=== PATIENT | male | born 1960 | race Caucasian/White ===

== ENCOUNTER 2022-05-23 07:28 | Outpatient (CLI) | payer BC, SELFPAY ==
[2022-05-23 10:10] LABS: Albumin* 4.1 g/dL (3.3-5.0)
[2022-05-23 10:11] LABS: Chloride* 104 mmol/L (96-114); Potassium* 5.1 mmol/L (3.6-5.1); Sodium* 137 mmol/L (135-149)
[2022-05-23 10:13] LABS: Carbon Dioxide* 27 mmol/L (20-32); Cholesterol* 180 mg/dL (90-199); Estimated Glomerular Filt Rate 85 ml/min
[2022-05-23 10:14] LABS: Alanine Aminotransferase* 34 U/L (4-50); Alkaline Phosphatase* 94 U/L (40-150); Aspartate Amino Transferase* 33 U/L (12-35); Bilirubin Total* 0.8 mg/dL (0.1-1.5); Blood Urea Nitrogen* 19 mg/dL (7-30); Calcium* 9.2 mg/dL (8.4-10.6); Glucose* 118 mg/dL (60-115); Total Protein* 6.6 g/dL (6.0-8.3); Triglycerides* 122 mg/dL (40-149)
[2022-05-23 10:15] LABS: HDL Cholesterol* 58 mg/dL (>=40); LDL Cholesterol Calculated 98 mg/dL (<100)
[2022-05-23 10:42] LABS: PSA Screen* 2.92 ng/mL (0.10-4.00)
== END 2022-05-23 07:29 | disposition home or self-care (01) ==
PROVIDERS: PCP Family Medicine; Visit Provider Family Medicine
DX: E78.5 Hyperlipidemia, unspecified (principal); I10 Essential (primary) hypertension; Z12.5 Encounter for screening for malignant neoplasm of prostate
CPT/HCPCS: 80053; 80061; 84153

== ENCOUNTER 2023-05-23 08:15 | Outpatient (CLI) | payer BC, SELFPAY | END 2023-05-23 08:16 | disposition home or self-care (01) | LOC: NFLDREF 05-26 09:07 | PROVIDERS: PCP Family Medicine; Referring Provider Family Medicine; Visit Provider Family Medicine | DX: Z00.00 Encounter for general adult medical examination without abnormal findings (principal); E78.5 Hyperlipidemia, unspecified; I10 Essential (primary) hypertension; E66.9 Obesity, unspecified; Z12.5 Encounter for screening for malignant neoplasm of prostate | CPT/HCPCS: 80053; 80061; 84153 ==

== ENCOUNTER 2023-08-08 07:01 | Outpatient (CLI) | payer BC, SELFPAY ==
--- NOTE | 2023-08-08 07:15 | MR_ITS ---
[facility] [address] [facility] [address] Phone:?[phone] Fax:?[phone] Referring Physician Information: Woo Palu M.D. [address] [facility] [address] Phone:?[phone] Fax:?[phone] Patient:Tabitha Holley D.O.B:?1960 Sex:?Male Phone:?[phone] [facility] MRN:?[id number] Exam Date:?08/08/2023 EXAM: MRI OF THE RIGHT KNEE CLINICAL INFORMATION: The patient is a 62-year-old with right knee pain. Evaluate for lateral meniscal tear. PRIOR SURGERY: The patient has a history of prior right knee surgery. COMPARISON STUDIES: Comparison is made to the prior MRI examination dated 07/31/2002. TECHNICAL INFORMATION: Imaging was performed on a high-field, 1.5 Lilian MR scanner. Axial proton-density and fat-suppressed T2 imaging of the right knee was performed in addition to sagittal proton-density and fat-suppressed proton- density imaging. Coronal proton-density and coronal STIR imaging was also performed. FINDINGS: Articular/Extraarticular collections: Effusion: Moderate. Popliteal cyst: Small, seen on axial series 4 image 18. Loose bodies: No well-defined intra-articular loose bodies are present. Subcutaneous and extraarticular soft tissues: Nonspecific subcutaneous soft tissue edema and/or hemorrhage can be seen along the anterior, anteromedial, and anterolateral aspects of the right knee. Osseous structures: Cortical irregularity and subcortical edema can be seen along the articular surfaces of the medial femoral condyle and medial tibial plateau, in keeping with the meniscal tearing and chondral loss discussed below. Additional cortical irregularity, subcortical cystic change, and subcortical edema can be seen along the patellofemoral articular surfaces with spurring along the articular margins. The findings are in keeping with osteoarthritic changes and are consistent with the chondromalacia and chondral loss described below. No evidence for well- defined fracture, contusion, or stress injury about the right knee can be seen. Ligamentous structures: ACL: There is thickening of the ACL with indistinctness of its margins and increased intrasubstance signal intensity, in keeping with residual changes of a prior severe incomplete sprain. No definite transverse disruption of ACL fibers is noted. PCL: Intact and normal in appearance. MCL: Intact and normal in appearance. LCL: Intact and normal in appearance. Posterolateral corner: Intact and normal in appearance. Posteromedial corner: No posteromedial corner soft tissue injury. Semimembranosus and pes anserine tendons demonstrate no tendinopathy or associated bursitis. Extensor mechanism/Patellar retinacular structures: Patellar tendon: Intact, without tendinopathy. Quadriceps tendon: Intact, without tendinopathy. Retinacula: The medial and lateral retinacula are intact. The medial patellofemoral ligament is intact. Medial compartment: Medial meniscus: The medial meniscus is abnormal in appearance. There is evidence for prior partial medial meniscectomy. Attenuation and irregularity of the medial meniscus can be seen. Broad-based areas of recurrent or residual tearing involving the middle and posterior portions of the medial meniscal remnant can be seen on coronal series 7 image 7 and on sagittal series 5 image 21. No definite parameniscal cyst formation is seen. Medial femoral condyle: Full-thickness and near full-thickness chondral loss can be seen along the central and posterior articular surfaces of the medial femoral condyle. Underlying bony changes are seen. Medial tibial plateau: Full-thickness and near full-thickness chondral loss can be seen along the central and medial weightbearing surfaces of the medial tibial plateau. Underlying bony changes are noted. Lateral compartment: Lateral meniscus: No evidence for lateral meniscal tearing is present. No evidence for parameniscal cyst formation can be seen. Lateral femoral condyle: Broad-based changes of grade II to III chondromalacia can be seen along the weightbearing surfaces of the lateral femoral condyle. Lateral tibial plateau: Full-thickness and near full-thickness chondral loss can be seen along the central and posterior weightbearing surfaces of the lateral tibial plateau. Patellofemoral compartment: Patella: Full-thickness and near full-thickness chondral loss can be seen along the lateral patellar facet on axial series 4 image 9. Underlying bony changes are seen. Trochlea: Broad-based, full-thickness chondral loss can be seen along the central and lateral articular surfaces of the femoral trochlea. Underlying bony changes are seen. Neurovascular: No definite neurovascular abnormalities are seen. CONCLUSION: 1. Full-thickness and near full-thickness chondral loss involving the medial and patellofemoral joint compartments with additional chondromalacia and chondral loss involving the lateral compartment. Please see the descriptions above. 2. Evidence for prior partial medial meniscectomy can be seen. There is recurrent or residual tearing of the middle and posterior portions of the medial meniscal remnant. No definite lateral meniscal tearing is seen. 3. Severe incomplete ACL sprain. The ligamentous structures of the knee are otherwise intact. 4. Moderate knee joint effusion and small popliteal cyst. [facility] Electronically signed on 08/08/2023 12:29:00 PM by Andres Rendon M.D.
== END 2023-08-08 07:02 | disposition home or self-care (01) ==
LOC: MRI 07:01
PROVIDERS: PCP Family Medicine; Visit Provider Family Medicine
DX: M25.561 Pain in right knee (principal); M22.41 Chondromalacia patellae, right knee; S83.511A Sprain of anterior cruciate ligament of right knee, initial encounter; M25.461 Effusion, right knee
CPT/HCPCS: 73721

== ENCOUNTER 2024-06-28 08:18 | Outpatient (CLI) | payer BC, SELFPAY ==
--- OUTSIDE RECORDS SUMMARY | 2024-06-30 14:23 | XMS_ITS | Clinical Summary ---
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 90 capsule 1 09/15/2014 Active lisinopril-hydrochlo rothiazide (10-12.5 mg) tablet (PRINZIDE; ZESTORETIC)Indicatio ns:HTN (hypertension) Take 1 tablet by mouth once daily. 30 tablet 0 10/10/2015 Active Active Problems Problem Noted Date Diagnosed Date HTN (hypertension) 02/28/2012 Cervical radiculitis 09/05/2011 Degeneration of cervical intervertebral disc 09/2010 Impaired glucose tolerance 04/10/2011 Carpal tunnel syndrome 03/28/2011 Sensorineural hearing loss, bilateral 03/31/2007 Encounters Date Type Department Care Team Description 05/18/2024 1:30 PM CDT Office Visit [facility] [address] [place] [address] Hodan Rizzo AuD Hearing Aid (FAY fitting) 05/18/2024 Travel 05/18/2024 Telephone [facility] [address] [place] [address] Hodan Rizzo AuD 04/27/2024 3:30 PM CDT Office Visit [facility] [address] [place] [address] Hodan Rizzo AuD Hearing Problem (Hearing test) 04/27/2024 Travel 04/12/2024 Telephone [facility] [address] [place] [address] Hodan Rizzo AuD Returning call (Hearing test) 04/09/[address] [facility] [address] [phone] Hodan Rizzo AuD Prior Authorization 04/07/2024 12:00 PM CDT Office Visit [facility] [address] [facility] [address] Hodan Rizzo AuD Hearing Aid (FAY check) 04/07/2024 Travel from Last 3 Months Immunizations Name Administration Dates Next Due COVID-19 vaccine (IntelePeer 30mcg/0.3mL) PF, MDV 11/15/2020,10/24/2020 Influenza RIV4 (Age 18+ Year s) PRESERV FREE 08/01/2021 Influenza Virus, Unspecified 07/17/2011, 09/10/2007,08/16/2003,2000 Influenza, IIV3 (Age >=3 years) 08/24/2012 Influenza, IIV4 06/29/2019,07/04/2014 Td (Age >=7 Years) 01/31/2005 Tdap 05/04/2020,12/07/2010 Zoster (Shingrix-RZV, recombinant) 01/04/2022, Family History Medical History Relation Name Comments Other Father early Alzheimer 's Good Health Mother b 1936 Relation Name Status Comments Father Mother Social History Tobacco Use Types Packs/Day Years Used Date Smoking Tobacco: Never Smokeless Tobacco: Never Tobacco Cessation:Counseling Given: Yes Alcohol Use Standard Drinks/Week Comments Yes 0 (1 standard drink = 0.6 oz pur e alcohol) occasionally Sex and Gender Information Value Date Recorded Sex Assigned at Not on file Gender Identity Not on file Sexual Orientation Not on file Obstetrics History Last Filed Vital Signs Vital Sign Reading Time Taken Comments Blood Pressure 123/77 05/03/2015 2:02 PM CDT Pulse 51 05/03/2015 2:02 PM CDT Temperature 36.6 ??C (97.8 ??F) 05/03/2015 2:02 PM CD T Respiratory Rate - - Oxygen Saturation 97% 05/03/2015 2:02 PM CDT Inhaled Oxygen Concentration - - Weight 101.5 kg (223 lb 12.8 oz) 05/03/2015 2:02 PM CDT Height 173.5 cm (5' 8.31) 01/24/2014 7:32 AM CD T Body Mass Index 33.72 01/24/2014 7:32 AM CDT Plan of Treatment Health Maintenance Due Date Last Done Comments Depression screening for age 12+ 1970 HIV for age 15-65 1973 BMI (ht and wt on same day) for age 18+ 1976 Hepatitis C screening for ag e 18-79 1976 Lipids for age 45-75 09/17/2018 09/17/2013, 12/13/19 11 Pneumococcal series for age 65+ (1 of 1 - PCV) 11/28/2023 COVID-19 vaccine series ( season) 2024 11/14/2023, 09/10/2022, 08/30/2021, Additional history exists Influenza for age 65+ 05/30/2024 08/01/2021 , 06/29/2019, 07/04/2014, Additional history exists Colonoscopy through age 75 07/04/2024 07/04/2014 Tetanus booster 05/04/2030 05/04/2020, 11/27, 01/31/2005 Tdap Completed 05/04/2020, 12/07/2010 Zoster (shingles) series for age 50+ Completed 01/04/2022, 06/01/2021 Procedures Procedure Name Priority Date/Time Associated Diagnosis Comments LIPID PANEL W REFLEX MEASURED LDL Routine 09/17/2013 4:35 PM MEASURING CLERK Screening for ischemic heart disease from Last 3 Months or Most Recently Relevant to Health Maintenance Results * (ABNORMAL) LIPID PANEL W REFLEX MEASURED LDL (09/17/2013 4:35 PM MEASURING CLERK) CHOLESTEROL,TOTAL 223(H) 100 - 199 mg/dL 09/17/2013 5:30 PM MEASURING CLERK [facility] TRIGLYCERIDES 208(H) <150 mg/dL 09/17/2013 5:30 PM MEASURING CLERK [facility] HDL CHOLESTEROL 53 >40 mg/dL 3 5:30 PM MEASURING CLERK [facility] NON-HDL CHOLESTEROL 170(H) <145 mg/dl 09/17/2013 5:30 PM MEASURING CLERK [facility] CHOL/HDL RATIO 4.21 <4.50 09/17/2013 5:30 PM [facility] LDL CHOLESTEROL 128 <=130 mg/dL 09/17/2013 5:30 PM MEASURING CLERK [facility] PATIENT STATUS NON-FASTI NG 09/17/2013 5:30 PM [facility] Blood specimen (specimen) BLOOD SPECIMEN / Unknown Venipuncture / Unknown 09/17/2013 4:35 PM MEASURING CLERK 09/17/2013 4:36 PM MEASURING CLERK Yusuf Fishman MD CHEMISTRY [facility] [address] [place] [address] from Last 3 Months or Most Recently Relevant to Health Maintenance Care Teams Typing Element Machine Operator Relationship Specialty Start Date End Date Pcp, No . PCP - General 02/19/21
== END 2024-06-28 08:19 | disposition home or self-care (01) ==
LOC: NFLDREF 06-30 14:22
PROVIDERS: PCP Family Medicine; Referring Provider Family Medicine; Visit Provider Family Medicine
DX: E78.5 Hyperlipidemia, unspecified (principal); I10 Essential (primary) hypertension; Z12.5 Encounter for screening for malignant neoplasm of prostate
CPT/HCPCS: 80053; 80061; G0103

== ENCOUNTER 2025-07-11 10:14 | Outpatient (CLI) | payer BC, SELFPAY | END 2025-07-11 10:15 | disposition home or self-care (01) | LOC: NFLDREF 07-12 15:56 | PROVIDERS: PCP Family Medicine; Referring Provider Family Medicine; Visit Provider Family Medicine | DX: I10 Essential (primary) hypertension (principal); E78.5 Hyperlipidemia, unspecified; Z12.5 Encounter for screening for malignant neoplasm of prostate | CPT/HCPCS: 80053; 80061; G0103 ==